=== PATIENT | female | born 1955 | race Two or more races ===

== ENCOUNTER 2022-05-20 09:22 | Outpatient (CLI) | payer OTHER | END 2022-05-20 09:26 | disposition home or self-care (01) | LOC: RX STUDY 09:22 | PROVIDERS: ATTEND Internal Medicine Gastroenterology | DX: R13.10 Dysphagia, unspecified (principal); K21.9 Gastro-esophageal reflux disease without esophagitis ==

== ENCOUNTER 2024-01-26 15:20 | Emergency (ER) | payer OTHER ==
[~2024-01-26] VITALS: Ht 149.9 cm; Wt 68.0 kg
== END 2024-01-26 18:25 | disposition home or self-care (01) ==
LOC: ER 15:21
DX: S80.211A Abrasion, right knee, initial encounter (principal); W19.XXXA Unspecified fall, initial encounter; Y93.89 Activity, other specified; Y92.89 Other specified places as the place of occurrence of the external cause; Y99.8 Other external cause status